=== PATIENT | female | born 1985 | race Caucasian/White ===

== ENCOUNTER 2025-07-25 15:06 | Emergency (ER) | payer BC, OTHER ==
[~2025-07-25] VITALS: Ht 167.6 cm; Wt 79.0 kg
[2025-07-25 15:09] VITALS: O2SAT 99
[2025-07-25 15:14] VITALS: BP 126/68; PULSE 94; RESP 16; TEMP 37; O2SAT 100
[2025-07-25] MEDS ORDERED: ACET-2708 MT (18:20)
[2025-07-25] MEDS ORDERED: CEPH500T MT (18:20)
[2025-07-25] MEDS ORDERED: IBUP-2028 MT (18:20)
[2025-07-25] MEDS ORDERED: SULF1TAB48 MT (18:20)
[2025-07-25] MEDS: LIDOCAINE HCL 1% 20ML VIAL INFIL ONE (18:29)
[2025-07-25] MEDS: HYDROCODONE/ACETAMINOPHEN 5/325MG TABLET PO ONE (18:36)
== END 2025-07-25 18:32 | disposition home or self-care (01) ==
LOC: ER 15:06
DX: L72.3 Sebaceous cyst (principal); L03.90 Cellulitis, unspecified; Z79.899 Other long term (current) drug therapy
CPT/HCPCS: 10060; 99283; Z7610 ×3